=== PATIENT | female | born 1975 | race Two or more races ===

== ENCOUNTER 2016-11-28 11:04 | Emergency (ER) | payer MEDICAID ==
[~2016-11-28] VITALS: Ht 172.7 cm; Wt 77.1 kg
[~2016-11-28 11:04] MED LIST: CARI250T8; NOR7.5T
[2016-11-28 13:01] VITALS: BP 168/88
== END 2016-11-28 13:46 | disposition home or self-care (01) ==
LOC: ER 11:09
DX: J02.9 Acute pharyngitis, unspecified (principal); I10 Essential (primary) hypertension; Z88.8 Allergy status to other drugs, medicaments and biological substances; Z88.6 Allergy status to analgesic agent

== ENCOUNTER 2016-12-17 06:10 | Emergency (ER) | payer MEDICAID ==
[~2016-12-17] VITALS: Ht 172.7 cm; Wt 76.2 kg
[2016-12-17 07:16] VITALS: BP 174/117
== END 2016-12-17 07:40 | disposition home or self-care (01) ==
LOC: ER 06:11
DX: G89.29 Other chronic pain (principal); M54.5 Low back pain; I10 Essential (primary) hypertension; Z88.6 Allergy status to analgesic agent; Z88.8 Allergy status to other drugs, medicaments and biological substances; Z79.899 Other long term (current) drug therapy